=== PATIENT | female | born 1985 | race Caucasian/White ===

== ENCOUNTER → 2024-02-19 12:51 | Outpatient (REF) | payer BC, SELFPAY | LOC: RCS 12:51 | PROVIDERS: ATTENDING PHYSICIAN Internal Medicine Interventional Cardiology; FAMILY PHYSICIAN Nurse Practitioner | DX: I34.0 Nonrheumatic mitral (valve) insufficiency (principal); R01.1 Cardiac murmur, unspecified | CPT/HCPCS: 93306 ==

== ENCOUNTER 2024-11-15 10:18 | Outpatient (RCR) | payer OTHER, SELFPAY | END 2024-11-15 23:59 | disposition home or self-care (01) | LOC: RPT 10:18 | PROVIDERS: ATTENDING PHYSICIAN Urology; FAMILY PHYSICIAN Nurse Practitioner | DX: N30.10 Interstitial cystitis (chronic) without hematuria (principal); M62.89 Other specified disorders of muscle; N39.3 Stress incontinence (female) (male); Z73.6 Limitation of activities due to disability | CPT/HCPCS: 97162; 97530 ==

== ENCOUNTER → 2024-11-29 13:22 | Outpatient (REF) | payer OTHER, SELFPAY | LOC: HWRAD 13:22 | PROVIDERS: ATTENDING PHYSICIAN Urology; FAMILY PHYSICIAN Nurse Practitioner | DX: N30.10 Interstitial cystitis (chronic) without hematuria (principal); M62.89 Other specified disorders of muscle; N39.3 Stress incontinence (female) (male) | CPT/HCPCS: 76856; 76857 ==

== ENCOUNTER 2024-12-16 09:00 | Outpatient (RCR) | payer OTHER, SELFPAY | END 2024-12-16 23:59 | disposition home or self-care (01) | LOC: RPT 09:00 | PROVIDERS: ATTENDING PHYSICIAN Urology; FAMILY PHYSICIAN Nurse Practitioner | DX: N30.10 Interstitial cystitis (chronic) without hematuria (principal); M62.89 Other specified disorders of muscle; N39.3 Stress incontinence (female) (male); Z73.6 Limitation of activities due to disability | CPT/HCPCS: 97014; 97110; 97112; 97140; 97530 ==

== ENCOUNTER 2024-12-30 08:59 | Outpatient (RCR) | payer OTHER, SELFPAY | END 2024-12-30 23:59 | disposition home or self-care (01) | LOC: RPT 08:59 | PROVIDERS: ATTENDING PHYSICIAN Urology; FAMILY PHYSICIAN Nurse Practitioner | DX: N30.10 Interstitial cystitis (chronic) without hematuria (principal); M62.89 Other specified disorders of muscle; N39.3 Stress incontinence (female) (male); Z73.6 Limitation of activities due to disability | CPT/HCPCS: 97110; 97140 ==

== ENCOUNTER → 2025-01-26 09:16 | Outpatient (REF) | payer OTHER, SELFPAY | LOC: HWRCS 09:16 | PROVIDERS: ATTENDING PHYSICIAN Internal Medicine Interventional Cardiology; FAMILY PHYSICIAN Nurse Practitioner | DX: E78.5 Hyperlipidemia, unspecified (principal); R00.2 Palpitations; I34.0 Nonrheumatic mitral (valve) insufficiency | CPT/HCPCS: 93306 ==

== ENCOUNTER 2025-02-08 09:04 | Outpatient (RCR) | payer OTHER, SELFPAY | END 2025-02-08 23:59 | disposition home or self-care (01) | LOC: RPT 09:04 | PROVIDERS: ATTENDING PHYSICIAN Urology; FAMILY PHYSICIAN Nurse Practitioner | DX: N30.10 Interstitial cystitis (chronic) without hematuria (principal); M62.89 Other specified disorders of muscle; N39.3 Stress incontinence (female) (male); Z73.6 Limitation of activities due to disability | CPT/HCPCS: 97014; 97110; 97112; 97140; 97530 ==

== ENCOUNTER 2025-02-24 08:58 | Outpatient (RCR) | payer OTHER, SELFPAY | END 2025-02-24 23:59 | disposition home or self-care (01) | LOC: RPT 08:58 | PROVIDERS: ATTENDING PHYSICIAN Urology; FAMILY PHYSICIAN Nurse Practitioner | DX: N30.10 Interstitial cystitis (chronic) without hematuria (principal); M62.89 Other specified disorders of muscle; N39.3 Stress incontinence (female) (male); Z73.6 Limitation of activities due to disability | CPT/HCPCS: 97110; 97112; 97530 ==

== ENCOUNTER 2025-03-24 09:01 | Outpatient (RCR) | payer OTHER, SELFPAY | END 2025-03-24 23:59 | disposition home or self-care (01) | LOC: RPT 09:01 | PROVIDERS: ATTENDING PHYSICIAN Urology; FAMILY PHYSICIAN Nurse Practitioner | DX: N30.10 Interstitial cystitis (chronic) without hematuria (principal); M62.89 Other specified disorders of muscle; N39.3 Stress incontinence (female) (male); Z73.6 Limitation of activities due to disability | CPT/HCPCS: 97014; 97110; 97112; 97530 ==

== ENCOUNTER 2025-04-25 11:00 | Outpatient (RCR) | payer OTHER, SELFPAY | END 2025-04-25 23:59 | disposition home or self-care (01) | LOC: RPT 11:00 | PROVIDERS: ATTENDING PHYSICIAN Urology; FAMILY PHYSICIAN Nurse Practitioner | DX: N30.10 Interstitial cystitis (chronic) without hematuria (principal); M62.89 Other specified disorders of muscle; N39.3 Stress incontinence (female) (male); Z73.6 Limitation of activities due to disability | CPT/HCPCS: 97110; 97112; 97530 ==

== ENCOUNTER → 2025-06-10 08:53 | Outpatient (REF) | payer OTHER, SELFPAY | LOC: WDC 08:53 | PROVIDERS: ATTENDING PHYSICIAN Obstetrics & Gynecology; FAMILY PHYSICIAN Nurse Practitioner | DX: R92.8 Other abnormal and inconclusive findings on diagnostic imaging of breast (principal) | CPT/HCPCS: 76642; 77061; 77065 ==